=== PATIENT | female | born 1985 | race Two or more races ===

== ENCOUNTER 2018-03-24 16:50 | Emergency (ER) | payer OTHER ==
[2018-03-24] MEDS ORDERED: ACETAMINOPHEN 325 MG TABLET PO ONE (16:52)
--- NOTE | 2018-03-24 18:10 | ER Document Report ---
HPI - HPI Pain Level: 4 Context: Patient is a 33-year-old female complaining of left ankle pain 2 day. Patient was walking her dog when the dog leash got wrapped around her ankle and she tripped twisting her ankle. Positive history of previous left ankle fracture. Associated Symptoms: None Exacerbated by: Walking Relieved by: Denies Similar symptoms previously: Yes Recently seen / treated by doctor: No - CONSTITUTIONAL Constitutional: DENIES: Fever, Chills - EENT EENT: DENIES: Sore Throat, Ear Pain, Eye problems - NEURO Neurology: DENIES: Headache, Weakness, Vision blurred, Dizzinesss / Vertigo - CARDIOVASCULAR Cardiovascular: DENIES: Chest pain - RESPIRATORY Respiratory: DENIES: Trouble Breathing, Coughing - GASTROINTESTINAL Gastrointestinal: DENIES: Abdominal Pain, Black / Bloody Stools - MUSCULOSKELETAL Musculoskeletal: REPORTS: Extremity pain - left elbow/arm pain Past Medical History - General Information source: Patient - Social History Smoking Status: Never Smoker Chew tobacco use (# tins/day): No Frequency of alcohol use: None Drug Abuse: None Lives with: Family Family History: Reviewed & Not Pertinent Patient has suicidal ideation: No Patient has homicidal ideation: No - Medical History Medical History: Negative Renal/ Medical History: Denies: Hx Peritoneal Dialysis Vertical Provider Document - CONSTITUTIONAL Agree With Documented VS: Yes Exam Limitations: No Limitations - HEENT HEENT: Atraumatic, PERRLA - NECK Neck: Normal Inspection, Supple - RESPIRATORY Respiratory: Breath Sounds Normal, No Respiratory Distress - CARDIOVASCULAR Cardiovascular: Regular Rate, Regular Rhythm - MUSCULOSKELETAL/EXTREMETIES Musculoskeletal/Extremeties: Tender - Focal tenderness in mild soft tissue swelling to left lateral malleolus. Distal sensorimotor circulation intact Course - Re-evaluation Re-evalutation: 03/24/18 18:08 After performing a Medical Screening Examination, I estimate there is LOW risk for OPEN FRACTURE, COMPARTMENT SYNDROME, DEEP VENOUS THROMBOSIS, ACUTE TENDON RUPTURE, or NEUROVASCULAR INJURY thus I consider the discharge disposition reasonable. I have reevaluated this patient multiple times and no significant life threatening changes are noted. The patient and I have discussed the diagnosis and risks, and we agree with discharging home to closely follow-up with their primary doctor or the referral orthopedist with the understanding that symptoms and presentations can change. We also discussed returning to the Emergency Department immediately if new or worsening symptoms occur. We have discussed the symptoms which are most concerning (e.g., changing or worsening pain, numbness, weakness) that necessitate immediate return 03/24/18 18:45 X-ray of left ankle is negative for fracture. These results were reviewed with the patient. Michelet wrap and ankle stirrup splint applied. Patient declined crutches at this time. - Vital Signs Vital signs: Temp Pulse Resp BP Pulse Ox 98.6 F 71 18 113/65 99 03/24/18 16:54 03/24/18 16:54 03/24/18 16:54 03/24/18 16:54 03/24/18 16:54 Procedures - Immobilization Left ankle Immobilizer type: Michelet wrap, Ankle stirrup Performed by: PCT Post-Proc Neuro Vasc Exam: Normal Alignment checked and good: Yes Discharge - Discharge Clinical Impression: Left ankle sprain Qualifiers: Encounter type: initial encounter Involved ligament of ankle: unspecified ligament Qualified Code(s): S93.402A - Sprain of unspecified ligament of left ankle, initial encounter Condition: Stable Disposition: HOME, SELF-CARE Instructions: Ibuprofen (General) ([facility]), Ice & Elevation (OM), Ice Packs (OM) , Sprained Ankle (OM) Prescriptions: Ibuprofen [Motrin 800 Mg Tablet] 800 mg PO Q6H #20 tablet
--- NOTE | 2018-03-24 18:26 | RADIOLOGY REPORT (SQ) ---
EXAM DESCRIPTION: ANKLE LEFT COMPLETE COMPLETED DATE/TIME: 03/24/2018 6:15 pm REASON FOR STUDY: left ankle pain COMPARISON: None. NUMBER OF VIEWS: Three views. TECHNIQUE: AP, lateral, and oblique radiographic images acquired of the left ankle. LIMITATIONS: None. FINDINGS: MINERALIZATION: Normal. BONES: There is a cannulated screw in the distal tibia. No acute osseous abnormality is present. JOINTS: No effusions. SOFT TISSUES: No soft tissue swelling. No foreign body. OTHER: No other significant finding. IMPRESSION: NEGATIVE STUDY OF THE LEFT ANKLE. NO RADIOGRAPHIC EVIDENCE OF ACUTE INJURY. TECHNICAL DOCUMENTATION: JOB ID: [id number] [id number]- All Rights Reserved Reading location - IP/workstation name: [email or web address]
[2018-03-24 19:01] VITALS: BP 107/65
== END 2018-03-24 19:02 | disposition home or self-care (01) ==
LOC: ER 16:50
DX: S93.402A Sprain of unspecified ligament of left ankle, initial encounter (principal); M25.572 Pain in left ankle and joints of left foot; M25.522 Pain in left elbow; X50.9XXA Other and unspecified overexertion or strenuous movements or postures, initial encounter; Y93.K1 Activity, walking an animal
CPT/HCPCS: 99283; 73610; L4350

== ENCOUNTER 2019-03-27 18:15 | Emergency (ER) | payer OTHER ==
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
[2019-03-27] MEDS ORDERED: DIPH/PERTUSS(ACELL)/TETANUS VAC/PF 0.5 ML SYR (>=10YO) IM ONE (20:40)
[2019-03-27 21:00] VITALS: BP 114/78
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
== END 2019-03-27 21:32 | disposition home or self-care (01) ==
LOC: ER 18:15
DX: S61.210A Laceration without foreign body of right index finger without damage to nail, initial encounter (principal); S60.222A Contusion of left hand, initial encounter; S60.221A Contusion of right hand, initial encounter; S80.211A Abrasion, right knee, initial encounter; S60.511A Abrasion of right hand, initial encounter; M79.641 Pain in right hand; M79.642 Pain in left hand; M25.561 Pain in right knee; Y08.89XA Assault by other specified means, initial encounter
CPT/HCPCS: 90471; 90715; 99284